=== PATIENT | female | born 1995 | race American Indian/Alaskan Native ===

== ENCOUNTER 2020-10-31 14:53 | Inpatient (IN) | payer OTHER ==
[~2020-10-31] VITALS: Ht 162.6 cm; Wt 102.1 kg
[2020-10-31] MEDS ORDERED: PRENATAL CAPLE1 EAC1 PO (18:42)
== END 2020-11-06 14:03 | disposition home or self-care (01) | DRG 831 ==
LOC: OBS/DEL 14:53 → LDR 16:34 → OBS/DEL 16:34 → OB/GYN 11-02 13:23
PROVIDERS: ADMIT Obstetrics & Gynecology; ATTEND Obstetrics & Gynecology
PROC: 4A1HXFZ Monitoring of Products of Conception, Cardiac Rhythm, External Approach (ICD-10-PCS; principal; 2020-10-31)
PROC: BY4FZZZ Ultrasonography of Third Trimester, Single Fetus (ICD-10-PCS; 2020-11-01)
DX: O60.03 Preterm labor without delivery, third trimester (principal); U07.1 COVID-19; O98.513 Other viral diseases complicating pregnancy, third trimester; O99.820 Streptococcus B carrier state complicating pregnancy; Z3A.33 33 weeks gestation of pregnancy

== ENCOUNTER 2020-12-08 20:51 | Inpatient (IN) | payer OTHER ==
[~2020-12-08] VITALS: Ht 162.6 cm; Wt 103.0 kg
[~2020-12-08 20:51] MED LIST: PRENATAL CAPLE1 EAC1 PO
[2020-12-08] MEDS ORDERED: CHILDREN'S ASPI81 MG PO (21:20)
[2020-12-11] MEDS ORDERED: FUSION PLUS CA1 EACH PO (10:49)
== END 2020-12-11 13:13 | disposition home or self-care (01) | DRG 807 ==
LOC: LDR 20:51 → OB/GYN 12-09 20:04
PROVIDERS: ADMIT Obstetrics & Gynecology; ATTEND Obstetrics & Gynecology
PROC: 10907ZC Drainage of Amniotic Fluid, Therapeutic from Products of Conception, Via Natural or Artificial Opening (ICD-10-PCS; 2020-12-08)
PROC: 3E033VJ Introduction of Other Hormone into Peripheral Vein, Percutaneous Approach (ICD-10-PCS; 2020-12-08)
PROC: 4A1HXFZ Monitoring of Products of Conception, Cardiac Rhythm, External Approach (ICD-10-PCS; 2020-12-08)
PROC: 10E0XZZ Delivery of Products of Conception, External Approach (ICD-10-PCS; principal; 2020-12-09)
PROC: 0KQM0ZZ Repair Perineum Muscle, Open Approach (ICD-10-PCS; 2020-12-09)
DX: O62.2 Other uterine inertia (principal); O99.824 Streptococcus B carrier state complicating childbirth; O90.81 Anemia of the puerperium; D64.9 Anemia, unspecified; Z37.0 Single live birth; Z3A.38 38 weeks gestation of pregnancy; Z20.822 Contact with and (suspected) exposure to COVID-19

== ENCOUNTER 2022-08-22 08:10 | Outpatient (CLI) | payer OTHER ==
[~2022-08-22 08:10] MED LIST changes: +CHILDREN'S ASPI81 MG PO; +FUSION PLUS CA1 EACH PO
== END 2022-08-22 10:00 | disposition home or self-care (01) ==
LOC: PRENATAL 08:10
PROVIDERS: ATTEND Obstetrics & Gynecology Maternal & Fetal Medicine
DX: O35.9XX0 Maternal care for (suspected) fetal abnormality and damage, unspecified, not applicable or unspecified (principal); O35.3XX0 Maternal care for (suspected) damage to fetus from viral disease in mother, not applicable or unspecified; O99.210 Obesity complicating pregnancy, unspecified trimester

== ENCOUNTER 2022-10-12 08:42 | Outpatient (CLI) | payer OTHER | END 2022-10-12 10:00 | disposition home or self-care (01) | LOC: PRENATAL 08:42 | PROVIDERS: ATTEND Obstetrics & Gynecology Maternal & Fetal Medicine | DX: O26.849 Uterine size-date discrepancy, unspecified trimester (principal); O99.210 Obesity complicating pregnancy, unspecified trimester; O09.219 Supervision of pregnancy with history of pre-term labor, unspecified trimester; Z3A.28 28 weeks gestation of pregnancy ==

== ENCOUNTER 2022-12-12 15:07 | Outpatient (CLI) | payer OTHER | END 2022-12-12 16:07 | disposition home or self-care (01) | LOC: PRENATAL 15:07 | PROVIDERS: ATTEND Obstetrics & Gynecology Maternal & Fetal Medicine | DX: O26.849 Uterine size-date discrepancy, unspecified trimester (principal); O99.210 Obesity complicating pregnancy, unspecified trimester; O35.9XX0 Maternal care for (suspected) fetal abnormality and damage, unspecified, not applicable or unspecified; O36.8199 Decreased fetal movements, unspecified trimester, other fetus; Z3A.36 36 weeks gestation of pregnancy ==

== ENCOUNTER 2022-12-13 17:50 | Inpatient (IN) | payer OTHER ==
[~2022-12-13] VITALS: Ht 162.6 cm; Wt 106.1 kg
== END 2022-12-15 19:47 | disposition home or self-care (01) | DRG 807 ==
LOC: OB/GYN 17:50 → LDR 17:50 → OB/GYN 12-14 01:29
PROVIDERS: ADMIT Obstetrics & Gynecology; ATTEND Obstetrics & Gynecology
PROC: 10E0XZZ Delivery of Products of Conception, External Approach (ICD-10-PCS; principal; 2022-12-13)
PROC: 0HQ9XZZ Repair Perineum Skin, External Approach (ICD-10-PCS; 2022-12-13)
PROC: 4A1HXCZ Monitoring of Products of Conception, Cardiac Rate, External Approach (ICD-10-PCS; 2022-12-13)
DX: O70.0 First degree perineal laceration during delivery (principal); Z37.0 Single live birth; Z3A.36 36 weeks gestation of pregnancy; Z20.822 Contact with and (suspected) exposure to COVID-19